=== PATIENT | female | born 1990 | race Caucasian/White ===

== ENCOUNTER 2022-04-12 12:02 | Emergency (ER) | payer OTHER ==
[2022-04-12 12:34] VITALS: BP 119/73; PULSE 63; TEMP 98.3; BMI 26.2
[2022-04-12] MEDS ORDERED: IBUPROFEN 600 MG TABLET (FP) PO ONE ×2 (14:35→14:39)
== END 2022-04-12 17:12 | disposition home or self-care (01) ==
LOC: JERFT 12:02 → JER 12:02 → JERFT 17:12
DX: R07.89 Other chest pain (principal); M25.571 Pain in right ankle and joints of right foot; V49.40XA Driver injured in collision with unspecified motor vehicles in traffic accident, initial encounter
CPT/HCPCS: 71046-TC-FY; 73590-TC-RT-FY; 73610-TC-RT-FY; 73630-TC-RT-FY; 99284-25